=== PATIENT | female | born 1995 ===

== ENCOUNTER 2019-11-17 17:19 | Emergency (ER) | payer OTHER ==
--- NOTE | 2019-11-17 18:30 | UC ---
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 She was assessed at [facility], normal EKG and possibly had a normal chest xray as part of the evaluation. For the past 2 days, she has had a cough productive of scant sputum with blood tinged flecks some of the time. The cough is not severe, she has not had a fever , and is not short of breath. The chest pain has increased a bit in the past several days. No hx of exposure to tuberculosis. Overall feels well, without sweats or weight loss. - History of Current Complaint Chief Complaint: UCChestPain Stated Complaint: COUGH Time Seen by Provider: 11/17/19 18:23 Hx Obtained From: Patient Hx Last Menstrual Period: 10/25/19 Onset/Duration: Sudden Onset, Lasting Days - 2 Timing: Intermittent Episodes Severity Initially: Mild Severity Currently: Mild Pain Intensity: 3 Character: Cough: Productive Aggravating Factors: Nothing Alleviating Factors: Nothing Associated Signs And Symptoms: Negative: Dyspnea, Fever, Wheezing, Nasal Congestion, Sinus Discomfort - Risk Factors Pulmonary Embolism Risk Factors: Negative Cardiac Risk Factors: Negative Pseudomonas Risk Factors: Negative Tuberculosis Risk Factors: Negative - Allergies/Home Medications Allergies/Adverse Reactions: Allergies Allergy/AdvReac Type Severity Reaction Status Date / Time No Known Allergies Allergy Verified 11/17/19 17:37 Home Medications: Home Medications Melatonin/Pyridoxine HCl (B6) [Melatonin 1 mg Tablet] 1 tab PO BEDTIME 11/17/19 [History Confirmed 11/17/19] PMH/Surg Hx/FS Hx/Imm Hx Previously Healthy: Yes - Surgical History Surgical History: None - Family History Known Family History: Positive: Cardiac Disease - GF had ND age 70 - Social History Occupation: Student - sales rep Lives: Alone Alcohol Use: None Substance Use Type: None Smoking Status (MU): Never Smoked Tobacco Review of Systems All Other Systems Reviewed And Are Negative: Yes Constitutional: Positive: Negative Skin: Positive: Negative Eyes: Positive: Negative ENT: Negative: Sore Throat, Ear Ache, Nasal Discharge Respiratory: Positive: Cough. Negative: Shortness Of Breath Cardiovascular: Positive: Chest Pain - chronic Gastrointestinal: Positive: Negative Genitourinary: Positive: Negative Motor: Positive: Negative Neurovascular: Positive: Negative Musculoskeletal: Positive: Negative Neurological/Mental Status: Positive: Negative Psychological: Positive: Negative Is Patient Immunocompromised?: No Physical Exam Triage Information Reviewed: Yes Appearance: Well-Appearing, No Pain Distress Vital Signs: Initial Vital Signs Temp 98.8 F 11/17/19 17:30 Pulse 72 11/17/19 17:30 Resp 15 11/17/19 17:30 BP 127/68 11/17/19 17:30 Pulse Ox 97 11/17/19 17:30 ENT: Positive: Pharynx normal, TMs normal Neck: Positive: Supple, Nontender, No Lymphadenopathy Respiratory: Positive: Lungs clear, Normal breath sounds, No respiratory distress Cardiovascular: Positive: RRR, No Murmur Abdomen Description: Positive: Nontender, No Organomegaly, Soft Musculoskeletal Exam: Normal Neurological Exam: Normal Psychological Exam: Normal Skin Exam: Normal Diagnostics - Radiology No standard instances Radiology Interpretation Completed By: ED Physician - Normal chest xray without infiltrate, normal heart shadow. 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 Clinical exam is essentially normal, without tachycardia, and oxygen saturations are normal. Discussed follow up with [facility], and need for re-evaluation if she has increasing shortness of breath or fever. - Differential Dx/Diagnosis Differential Diagnosis/HQI/PQRI: Bronchitis, Lower Resp Infection, Pulmonary Embolism Provider Diagnosis: Chest wall pain, chronic Discharge ED - Sign-Out/Discharge Documenting (check all that apply): Patient Departure All imaging exams completed and their final reports reviewed: No - Discharge Plan Condition: Stable Disposition: HOME Patient Education Materials: Chest Wall Pain (ED) Referrals: No Primary Care Phys,NOPCP [Primary Care Provider] - Additional Instructions: It is most likely that you have a viral illness causing your cough and the blood tinge in your phlegm. If you develop fever or worsening shortness of breath, please go to the emergency room. The pain in the sternal area is most consistent with chest wall pain. At this time, no treatment is indicated for the cough aside from use of a suppressant. Follow up with [facility] to review the chest pain and to determine if further testing is needed. - Billing Disposition and Condition Condition: STABLE Disposition: Home
[2019-11-17 19:53] VITALS: BP 123/75
--- NOTE | 2019-11-18 11:07 | UC ---
- Progress Note Progress Note: wet read correct Course/Dx - Diagnoses Provider Diagnoses: Chest wall pain, chronic Discharge ED - Sign-Out/Discharge Documenting (check all that apply): Post-Discharge Follow Up All imaging exams completed and their final reports reviewed: Yes - Discharge Plan Condition: Stable Disposition: HOME Patient Education Materials: Chest Wall Pain (ED) Referrals: No Primary Care Phys,NOPCP [Primary Care Provider] - Additional Instructions: It is most likely that you have a viral illness causing your cough and the blood tinge in your phlegm. If you develop fever or worsening shortness of breath, please go to the emergency room. The pain in the sternal area is most consistent with chest wall pain. At this time, no treatment is indicated for the cough aside from use of a suppressant. Follow up with [facility] to review the chest pain and to determine if further testing is needed. Our radiologist will review my reading of the chest xray tomorrow. If some finding is noted, you will receive a call. - Billing Disposition and Condition Condition: STABLE Disposition: Home
== END 2019-11-17 19:35 | disposition home or self-care (01) ==
LOC: UCEAST 17:19
DX: R07.89 Other chest pain (principal); G89.29 Other chronic pain; R05 Cough
CPT/HCPCS: 71046; 93005; 99201; G0463